=== PATIENT | male | born 1940 | race Caucasian/White ===

== ENCOUNTER 2021-11-21 00:46 | Inpatient (IN) | payer MEDICAID, OTHER ==
[~2021-11-21] VITALS: Ht 154.9 cm; Wt 59.9 kg
--- NOTE | 2021-11-21 01:15 | NUR ---
OLINDA FROM [facility] FOR SOB AND LOW O2 SATURATION. UPON ARRIVAL PT TACHYPENIC AND O2 SAT IN 90S PLACED ON NRB AT 15LPM INCREASED SATURATION TO 100%. WAS AT BEDSIDE FOR EVAL.
[2021-11-21] MEDS ORDERED: ALBUTEROL FS 2.5 MG/3 ML VIAL.NEB ONE (01:17)
[2021-11-21] MEDS ORDERED: IPRATROPIUM NEB FS 0.5 MG/2.5 ML AMPUL.NEB ONE (01:17)
[2021-11-21] MEDS ORDERED: LEVOFLOXACIN 500 MG /D5W 100ML 0 ML IV ONE (01:23)
[2021-11-21] MEDS ORDERED: LEVOFLOXACIN 750 MG /D5W 150ML 150 ML IV ONE ×2 (01:25→01:30)
[2021-11-21 01:26] LABS: ABG PCO2 47.8 mmHg (35.0-45.0); ABG PO2 202.9 mmHg (75.0-100.0); COHb 0.5 % (0.5-1.5); MetHb 0.3 % (0.0-1.5); O2Hb 98.5 % (94.0-97.0); SITE, ABG Right Radial; VENT MODE, BG 15LPM NRB
[2021-11-21] MEDS ORDERED: ALBUTEROL FS 2.5 MG/3 ML VIAL.NEB NEB ONE (01:30)
[2021-11-21] MEDS ORDERED: IPRATROPIUM NEB FS 0.5 MG/2.5 ML AMPUL.NEB NEB ONE (01:30)
--- NOTE | 2021-11-21 01:30 | NUR ---
20G IV LINE ESTABLISHED AT [facility]. BLOOD DRAWN AND SENT TO LAB
--- NOTE | 2021-11-21 01:59 | NUR ---
COVID TEST SWABBED AND SENT TO LAB
[2021-11-21 02:34] LABS: BASOPHILS # (AUTO) 0.1 K/uL (0.0-0.2); BASOPHILS % (AUTO) 0.6 % (0.0-2.0); EOSINOPHILS % (AUTO) 3.2 % (0.0-6.0); HEMATOCRIT 46 % (39-51); HEMOGLOBIN 15.6 g/dL (13.5-17.5); LYMPHOCYTES # (AUTO) 2.5 K/uL (0.8-4.8); LYMPHOCYTES % (AUTO) 22.6 % (20.0-44.0); MEAN CORPUSCULAR HGB CONC 34 g/dl (31.0-36.0); MEAN CORPUSCULAR VOLUME 88 fL (80-96); MONOCYTES # (AUTO) 1.2 K/uL (0.1-1.30); NEUTROPHILS # (AUTO) 6.8 K/uL (1.8-8.9); NEUTROPHILS % (AUTO) 62.6 % (43.0-81.0); PLATELET COUNT (AUTO) 237 K/uL (150-450); RED BLOOD CELL COUNT(AUTO) 5.17 MIL/uL (4.5-6.0); WHITE BLOOD COUNT (AUTO) 10.8 K/uL (4.3-11.0)
[2021-11-21 02:38] LABS: CALCIUM, SERUM 9.1 mg/dL (8.5-10.1); CARBON DIOXIDE 30 mmol/L (21-32); CHLORIDE 95 mmol/L (98-107); CREATININE 0.6 mg/dL (0.6-1.3); GLUCOSE 99 mg/dL (74-106); SODIUM SERUM 131 mmol/L (136-145); UREA NITROGEN, BLOOD 12 mg/dL (7-18)
[2021-11-21 02:54] LABS: ALANINE AMINOTRANSFERASE 35 U/L (12-78); ALBUMIN 3.6 g/dL (3.4-5.0); ALKALINE PHOSPHATASE 79 U/L (46-116); ASPARTATE AMINOTRANSFERASE 35 U/L (15-37); BILIRUBIN,DIRECT 0.1 mg/dL (0.0-0.2); BILIRUBIN,TOTAL 0.4 mg/dL (0.2-1.0); TOTAL PROTEIN, SERUM 7.9 g/dL (6.4-8.2)
[2021-11-21] MEDS ORDERED: IOHEXOL-350 100 ML VIAL IV ONE (02:59)
[2021-11-21] MEDS ORDERED: LEVOFLOXACIN 750 MG /D5W 150ML PIGGYBACK IV ONE (03:00)
--- NOTE | 2021-11-21 03:10 | NUR ---
PT BEING TRANSPORTED TO [facility]IA [facility]
--- NOTE | 2021-11-21 03:21 | NUR ---
PT RETURNED FROM CT SCAN
--- NOTE | 2021-11-21 03:33 | NUR ---
CALLED CHRIS FOR IMAGING READ
--- NOTE | 2021-11-21 05:06 | NUR ---
BED ASSIGNMENT: 327-1
[2021-11-21] MEDS ORDERED: ACETAMINOPHEN 325 MG TABLET PO PRN (06:00)
[2021-11-21] MEDS ORDERED: ONDANSETRON HCL/PF 4 MG/2 ML VIAL IVP PRN (06:00)
[2021-11-21] MEDS ORDERED: LEVALBUTEROL HCL NEB 1.25 MG/0.5 ML VIAL.NEB NEB PRN (06:00)
[2021-11-21] MEDS ORDERED: MORPHINE SULFATE INJ 2 MG/ML DISP.SYRIN IV PRN (06:00)
[2021-11-21] MEDS ORDERED: HYDROCODONE/APAP 5/325MG TABLET PO PRN (06:00)
[2021-11-21] MEDS ORDERED: MAG HYDROX/AL HYDROX/SIMETH 30 ML UDC PO PRN (06:00)
--- NOTE | 2021-11-21 06:17 | NUR ---
BED ASSIGNEMNT CHANGED TO 118-1
[2021-11-21] MEDS ORDERED: DOCUSATE SODIUM 100 MG CAPSULE PO ONE (06:22)
[2021-11-21] MEDS ORDERED: methylPREDNISolone SOD SUCC 125 MG/2ML VIAL ONE (06:22)
[2021-11-21] MEDS: DOCUSATE SODIUM 100 MG CAPSULE PO SCH ×3 (06:25→16:04)
[2021-11-21] MEDS: methylPREDNISolone SOD SUCC 125 MG/2ML VIAL IV SCH ×3 (06:25→21:26)
--- NOTE | 2021-11-21 06:34 | NUR ---
CALLED FOR REPORT. NO NURSE AVAILABLE.
--- NOTE | 2021-11-21 06:53 | NUR ---
REPORT GIVEN TO SULY
[2021-11-21] MEDS ORDERED: IPRATROPIUM NEB FS 0.5 MG/2.5 ML AMPUL.NEB NEB PRN (07:35)
[2021-11-21] MEDS ORDERED: PANTOPRAZOLE 40 MG TABLET.DR PO ONE (07:38)
[2021-11-21] MEDS: PANTOPRAZOLE 40 MG TABLET.DR PO SCH (07:40)
[2021-11-21] MEDS ORDERED: IPRA0.2S9 IH (07:48)
[2021-11-21] MEDS ORDERED: ATOR40TA PO (07:48)
[2021-11-21] MEDS ORDERED: DOXY100T2 PO (07:48)
[2021-11-21] MEDS ORDERED: LORA10TA68 PO (07:48)
[2021-11-21] MEDS ORDERED: BISA10SU11 RC (07:48)
[2021-11-21] MEDS ORDERED: MOME17SP (07:48)
[2021-11-21] MEDS ORDERED: ACET-2605 PO (07:48)
[2021-11-21] MEDS ORDERED: MAGN400O6 PO (07:48)
[2021-11-21] MEDS ORDERED: LATA2.5D15 EACHEYE (07:48)
[2021-11-21] MEDS ORDERED: IPRA4AER INH (07:48)
[2021-11-21] MEDS ORDERED: ASPI-1420 PO (07:48)
[2021-11-21] MEDS ORDERED: NA P133E RC (07:48)
[2021-11-21] MEDS ORDERED: PRED20TA PO (07:48)
[2021-11-21] MEDS ORDERED: POLY17PO4 PO (07:48)
[2021-11-21] MEDS ORDERED: OLOP2.5D12 EACHEYE (07:48)
[2021-11-21] MEDS ORDERED: FAMO20TA8 PO (07:48)
[2021-11-21] MEDS ORDERED: POLY15DR40 EACHEYE (07:48)
[2021-11-21] MEDS ORDERED: MELA3TAB41 PO (07:48)
[2021-11-21] MEDS ORDERED: ALBU6.7H9 IH (07:48)
[2021-11-21] MEDS ORDERED: CHOL100043 PO (07:48)
[2021-11-21] MEDS: LEVALBUTEROL HCL NEB 1.25 MG/0.5 ML VIAL.NEB NEB SCH ×3 (08:10→20:10)
[2021-11-21] MEDS: IPRATROPIUM NEB FS 0.5 MG/2.5 ML AMPUL.NEB NEB SCH ×3 (08:10→20:10)
--- NOTE | 2021-11-21 08:11 | NUR ---
THE PATIENT IS TAKEN TO ROOM 118-1 IN STABLE CONDITION AND PER POLICY
--- NOTE | 2021-11-21 08:15 | NUR ---
MECHANIC SOUND TECHNICIAN NOTES RECEIVED PATIENT VIA LINK FROM ER. ALERT AND ORIENTED TIMES 4. NO PAIN NOTED. SOB NOTED WHEN PATIENT TRYING TO MOVE . ON O2 INHALATION VIA NASAL CANNULA AT 4L/MIN. O2 SAT NOTED 100 %. EDUCATE THE PATIENT WITH TRANSLATION OF THE JENNIFER TO STAY IN BED AND USE URINAL FOR URINATION TO DECREASE THE RESPIRATORY DISTRESS. ALL NEEDS ATTENDED. ON TELE MONITOR READING 95 HR. IV SITE ON THE LEFT FOREARM G #20 INTACT. BED IN THE LOWEST POSITION AND LOCKED. CALL LIGHT AND TABLE WITHIN REACH. WILL CONTINUE TO MONITOR.
[2021-11-21] MEDS: ENOXAPARIN SODIUM 40 MG/0.4 ML DISP.SYRIN SQ SCH (09:03)
[2021-11-21] MEDS: ASPIRIN EC 81 MG TABLET.DR PO SCH (10:21)
[2021-11-21] MEDS ORDERED: BENZONATATE 100 MG CAPSULE PO PRN (10:30)
[2021-11-21] MEDS ORDERED: DEXTROSE 50%-WATER 50 ML DISP.SYRIN IV PRN (10:30)
[2021-11-21] MEDS ORDERED: GUAIFENESIN/CODEINE 10 ML UDC PO PRN (10:30)
[2021-11-21] MEDS ORDERED: BISACODYL SUPP (10 MG) 10 MG/SUPP.RECT SUPP.RECT RC PRN (11:00)
[2021-11-21] MEDS ORDERED: NA PHOS,M-B/NA PHOS,DI-BA 1 EA ENEMA RC PRN (11:00)
[2021-11-21] MEDS ORDERED: POLYETHYLENE GLYCOL 3350 17 GM POWD.PACK PO PRN (11:00)
[2021-11-21] MEDS ORDERED: MAGNESIUM HYDROXIDE 30 ML UDC PO PRN (11:00)
[2021-11-21 11:26] VITALS: BP 135/77
[2021-11-21] MEDS ORDERED: POLYVINYL ALCOHOL 15 ML BOTTLE OP PRN (11:30)
[2021-11-21] MEDS: BLOOD SUGAR DIAGNOSTIC 1 EACH STRIP VI SCH ×3 (12:01→21:41)
[2021-11-21] MEDS ORDERED: VANCOMYCIN 1.25 GM in IV D5W 250 ML IV ONE (14:00)
[2021-11-21] MEDS: INSULIN REGULAR, HUMAN 100 UNIT/ML 3 ML VIAL SQ PRN (14:46)
[2021-11-21] MEDS: ACETAMINOPHEN ES 500 MG TABLET PO SCH (16:04)
[2021-11-21] MEDS ORDERED: DOXYCYCLINE HYCLATE (100 MG) 100 MG TABLET PO SCH (17:00)
[2021-11-21] MEDS: *INSULIN REGULAR(HUMULIN R)HUM 100 UNIT/ML VIAL SQ PRN ×2 (17:35→21:42)
--- NOTE | 2021-11-21 18:44 | NUR ---
PARCEL POST TRUCK DRIVER CLOSING NOTES PATIENT ALERT AND ORIENTED TIMES 4. NO PAIN NOTED. SOB NOTED WHEN PATIENT TRYING TO MOVE . ON O2 INHALATION VIA NASAL CANNULA AT 5L/MIN. O2 SAT NOTED 96 %. REMIND PATIENT WITH TRANSLATION OF THE KARIN RUSS ENGLISH TUTOR TO STAY IN BED AND USE URINAL FOR URINATION TO DECREASE THE RESPIRATORY DISTRESS.ALL DUE MEDS GIVEN ORDERED. ALL NEEDS ATTENDED. ON TELE MONITOR READING SR . IV SITE ON THE LEFT FOREARM G #20 INTACT. BED IN THE LOWEST POSITION AND LOCKED. CALL LIGHT AND TABLE WITHIN REACH. WILL ENDORSE FOR MARY JO.
--- NOTE | 2021-11-21 19:10 | NUR ---
PATIENT SITTING IN BED, NO SOB/ACUTE DISTRESS NOTED, SON AND GIRLFRIEND AT BEDSIDE, PT DENIES ANY SOB/PAIN OR DISCOMFORT, BUT NOTED THAT PT DESATURATES QUICK WHENEVER HE MOVES OR USE URINAL, WILL KEEP PATIENT SAFE, WILL CONTINUE TO MONITOR CLOSELY.
[2021-11-21 20:00] VITALS: BP 104/66
[2021-11-21] MEDS: LATANOPROST EYE DROP 0.005% 2.5 ML BOTTLE EACHEYE SCH (21:27)
[2021-11-21] MEDS: ATORVASTATIN 40 MG TABLET PO SCH (21:30)
[2021-11-22] MEDS: IPRATROPIUM NEB FS 0.5 MG/2.5 ML AMPUL.NEB NEB SCH ×4 (01:45→20:15)
[2021-11-22] MEDS: LEVALBUTEROL HCL NEB 1.25 MG/0.5 ML VIAL.NEB NEB SCH ×4 (01:45→20:16)
[2021-11-22] MEDS ORDERED: VANCOMYCIN 1 GM in IV D5W 250 ML IV SCH (02:00)
[2021-11-22] MEDS ORDERED: VANCOMYCIN 1 GM VIAL ONE (03:07)
[2021-11-22] MEDS: methylPREDNISolone SOD SUCC 125 MG/2ML VIAL IV SCH ×3 (04:14→20:32)
--- NOTE | 2021-11-22 06:44 | NUR ---
RN CLOSING NOTE, PATIENT IN BED, ON 4LPM VIA NC, NO SO AND DISTRESS WITH EXERTION, DESATURATES WITH EXERTION, O2 DROPS QUICK, NSR IN TELE MONITOR NSR IN THE 80S-90S. OTHERWISE STABLE THROUGHOUT ON NC, ALL NEEDS MET AND MEDS ADMINISTERED ORDERED, ALL SAFETY MEASURES FOLLOWED, BED LOCKED AND IN LOWEST POSITION, KEPT PT SAFE AT ALL TIMES, CALL LIGHT WITHIN REACH, WILL ENDORSE CONTINUITY OF CARE TO ONCOMING NURSE.
[2021-11-22] MEDS: BLOOD SUGAR DIAGNOSTIC 1 EACH STRIP VI SCH ×4 (07:30→21:29)
--- NOTE | 2021-11-22 07:56 | NUR ---
RN OPENING NOTES PATIENT AWAKE IN BED RESTING, A/O X4. NO S/S OF PAIN NOTED AT THIS TIME. PATIENT ON 4L OXYGEN, NO DISTRESS OR SHORTNESS OF BREATH AT THE MOMENT. IV ACCESS LFA #20G INTACT, PATENT AND FLUSHING WELL. PATIENT HAS AN EXTERNAL LEAD HOUSEKEEPER CURRENT READING OF S.R AND HR OF 80. FALL AND SAFETY MEASURES IN PLACE, BED ALARM ON, BED IN LOW AND LOCK POSITION, CALL LIGHT AND TABLE WITHIN EASY REACH, SIDE RAILS UP X2. WILL CONTINUE TO MONITOR.
[2021-11-22] MEDS ORDERED: MOMETASONE FUROATE NASAL SUSP 17 GM BOTTLE PRN (09:00)
[2021-11-22] MEDS: LEVOFLOXACIN 750 MG /D5W 150ML 150 ML IV SCH (09:39)
[2021-11-22] MEDS: LORATADINE 10 MG TABLET PO SCH (09:39)
[2021-11-22] MEDS: ACETAMINOPHEN ES 500 MG TABLET PO SCH ×2 (09:40→16:25)
[2021-11-22] MEDS: CHOLECALCIFEROL 1,000 UNIT TABLET (VIT D3) PO SCH (09:40)
[2021-11-22] MEDS: ASPIRIN EC 81 MG TABLET.DR PO SCH (09:40)
[2021-11-22] MEDS: DOCUSATE SODIUM 100 MG CAPSULE PO SCH ×2 (09:40→16:25)
[2021-11-22] MEDS: ENOXAPARIN SODIUM 40 MG/0.4 ML DISP.SYRIN SQ SCH (09:42)
[2021-11-22] MEDS: PANTOPRAZOLE 40 MG TABLET.DR PO SCH (09:43)
[2021-11-22] MEDS: OLOPATADINE HCL 0.1% OPHTH BOTTLE EACHEYE SCH (10:16)
[2021-11-22] MEDS: *INSULIN REGULAR(HUMULIN R)HUM 100 UNIT/ML VIAL SQ PRN ×3 (12:33→21:33)
[2021-11-22] MEDS: METOPROLOL TARTRATE 25 MG TABLET PO SCH ×2 (12:40→21:17)
--- NOTE | 2021-11-22 18:56 | NUR ---
RN CLOSING NOTES PATIENT AWAKE IN BED RESTING, A/O X4. NO S/S OF PAIN NOTED AT THIS TIME. PATIENT ON 4L OXYGEN, NO DISTRESS OR SHORTNESS OF BREATH AT THE MOMENT. IV ACCESS LFA #20G INTACT, PATENT AND FLUSHING WELL. PATIENT HAS AN EXTERNAL CLOD PULLER CURRENT READING OF S.T. AND HR OF 106. FALL AND SAFETY MEASURES IN PLACE, BED ALARM ON, BED IN LOW AND LOCK POSITION, CALL LIGHT AND TABLE WITHIN EASY REACH, SIDE RAILS UP X2. WILL ENDORSE TO SKIP TRACER.
--- NOTE | 2021-11-22 19:29 | NUR ---
RN OPENING NOTES RECEIVED PATIENT IN BED AWAKE, A/O X4 AND VERBALLY RESPONSIVE. [place]STA RICAN SPEAKING. ON 4L/MIN VIA N/C, O2 SAT 94% AND PT TOLERATED WELL. NOTED ON AND OFF NON-PRODUCTIVE COUGH. IV ACCESS LFA #20G INTACT AND PATENT, NO S/S OF INFILTRATIONS. NO C/O PAIN OR DISCOMFORT. NO ACUTE DISTRESS. ALL SAFETY MEASURES IN PLACE, BED ALARM ON, BED IN LOWEST POSITION AND LOCKED. PLACE CALL LIGHT WITHIN REACH, SIDE RAILS UP X2. WILL CONTINUE TO MONITOR.
[2021-11-22 20:00] VITALS: BP 117/71
[2021-11-22] MEDS: ATORVASTATIN 40 MG TABLET PO SCH (21:16)
[2021-11-22] MEDS: DOXYCYCLINE HYCLATE (100 MG) 100 MG TABLET PO SCH (21:16)
[2021-11-22] MEDS: LATANOPROST EYE DROP 0.005% 2.5 ML BOTTLE EACHEYE SCH (21:18)
--- NOTE | 2021-11-22 21:40 | NUR ---
RN NOTES: PT'S BLOOD SUGAR 151, 2 UNITS OF REGULAR INSULIN GIVEN PER SLIDING SCALE. NO S/S OF HYPER/HYPOGLYCEMIA. WILL CONTINUE TO MONITOR
[2021-11-23] VITALS: BP 115/70
[2021-11-23] MEDS: LEVALBUTEROL HCL NEB 1.25 MG/0.5 ML VIAL.NEB NEB SCH ×4 (02:04→19:54)
[2021-11-23] MEDS: IPRATROPIUM NEB FS 0.5 MG/2.5 ML AMPUL.NEB NEB SCH ×4 (02:05→19:54)
[2021-11-23 04:00] VITALS: BP 125/71
[2021-11-23] MEDS: methylPREDNISolone SOD SUCC 125 MG/2ML VIAL IV SCH (04:31)
[2021-11-23 06:25] LABS: HEMATOCRIT 42 % (39-51); LYMPHOCYTES % (AUTO) 5.8 % (20.0-44.0); MEAN CORPUSCULAR HGB CONC 34 g/dl (31.0-36.0); MEAN CORPUSCULAR VOLUME 88 fL (80-96); MONOCYTES # (AUTO) 0.9 K/uL (0.1-1.30); MONOCYTES % (AUTO) 5.1 % (2.0-12.0); NEUTROPHILS # (AUTO) 16.2 K/uL (1.8-8.9); NEUTROPHILS % (AUTO) 89.1 % (43.0-81.0); PLATELET COUNT (AUTO) 265 K/uL (150-450); RED BLOOD CELL COUNT(AUTO) 4.72 MIL/uL (4.5-6.0); WHITE BLOOD COUNT (AUTO) 18.1 K/uL (4.3-11.0)
--- NOTE | 2021-11-23 06:34 | NUR ---
RN CLOSING NOTES PATIENT IN BED, SLEEPING BUT EASILY AROUSABLE, A/O X4 AND VERBALLY RESPONSIVE. EQUATORIAL GUINEAN SPEAKING. ON 4L/MIN VIA N/C, O2 SAT 94% AND PT TOLERATED WELL. NOTED ON AND OFF NON-PRODUCTIVE COUGH. BREATHING TX GIVEN BY RT. CARDIAC MONITORING SHOWS SR TO ST. IV ACCESS ON LFA #20G INTACT AND PATENT, NO S/S OF INFILTRATIONS. NO C/O PAIN OR DISCOMFORT. NO ACUTE DISTRESS. ALL MEDS GIVEN ORDERED AND PT TOLERATED WELL. ALL SAFETY MEASURES IN PLACE, BED ALARM ON, BED IN LOWEST POSITION AND LOCKED. PLACE CALL LIGHT WITHIN REACH, SIDE RAILS UP X2. WILL ENDORSE TO MORNING SHIFT NURSE. Addendum: 11/23/21 at 0639 by LILIANE BONNER RN 6L/MIN VIA N/C
[2021-11-23 06:40] LABS: CREATININE 0.7 mg/dL (0.6-1.3)
[2021-11-23 08:00] VITALS: BP 128/86
[2021-11-23] MEDS: LORATADINE 10 MG TABLET PO SCH (08:00)
[2021-11-23] MEDS: BLOOD SUGAR DIAGNOSTIC 1 EACH STRIP VI SCH ×4 (08:00→22:27)
[2021-11-23] MEDS: CHOLECALCIFEROL 1,000 UNIT TABLET (VIT D3) PO SCH (08:01)
[2021-11-23] MEDS: DOCUSATE SODIUM 100 MG CAPSULE PO SCH ×2 (08:01→16:03)
[2021-11-23] MEDS: ASPIRIN EC 81 MG TABLET.DR PO SCH (08:01)
[2021-11-23] MEDS: ACETAMINOPHEN ES 500 MG TABLET PO SCH ×2 (08:01→16:03)
[2021-11-23] MEDS: PANTOPRAZOLE 40 MG TABLET.DR PO SCH (08:01)
[2021-11-23] MEDS: DOXYCYCLINE HYCLATE (100 MG) 100 MG TABLET PO SCH ×2 (08:01→22:06)
[2021-11-23] MEDS: OLOPATADINE HCL 0.1% OPHTH BOTTLE EACHEYE SCH (08:01)
[2021-11-23] MEDS: METOPROLOL TARTRATE 25 MG TABLET PO SCH ×2 (08:02→22:06)
[2021-11-23] MEDS: LEVOFLOXACIN 750 MG /D5W 150ML 150 ML IV SCH (08:02)
[2021-11-23] MEDS: ENOXAPARIN SODIUM 40 MG/0.4 ML DISP.SYRIN SQ SCH (08:04)
[2021-11-23 09:19] LABS: THYROID STIMULATING HORMONE 0.238 uIU/mL (0.358-3.74)
[2021-11-23 12:00] VITALS: BP 101/65
[2021-11-23 12:15] LABS: ABG BASE EXCESS 3.5 mmol/L; ABG OXYGEN SATURATION 90.1 % (92.0-98.5); ABG PCO2 44.6 mmHg (35.0-45.0); ABG PH 7.424 (7.350-7.450); ABG PO2 56.1 mmHg (75.0-100.0); AaDO2 90.9 mmHg; MetHb 0.2 % (0.0-1.5); SITE, ABG Right Brachial; VENT MODE, BG 2LPM NC
--- NOTE | 2021-11-23 12:15 | NUR ---
RT POST ABG RESULTS SHOWN TO SHELDON LEAL. PLACED PT ON 3LPM O2 VIA NC. NO SOB NOTED AT THIS TIME. WILL CONTINUE TO MONITOR CLOSELY.
[2021-11-23] MEDS: methylPREDNISolone SOD SUCC 40 MG/ML VIAL IV SCH ×2 (12:29→22:06)
[2021-11-23 16:00] VITALS: BP 112/65
[2021-11-23] MEDS: INSULIN REGULAR, HUMAN 100 UNIT/ML 3 ML VIAL SQ PRN (19:02)
--- NOTE | 2021-11-23 19:30 | NUR ---
RN NOTES RECEIVED PT FOR CONTINUITY OF CARE. PATIENT A/OX4, THAI SPEAKING IN NO S/SX OF ACUTE DISTRESS AT THIS TIME; CURRENTLY ON 4L OF 02 VIA NC; WITH 02 SAT >95% AT THIS TIME. WILL ENSURE SAFETY MEASURES WITHIN THE SHIFT. PATIENT BED ALARM IS ON. HEAD OF BED ELEVATED. BED IS LOCKED, IN LOWEST POSITION AND SIDE RAILS UP. CALL LIGHT WITHIN REACH OF THE PATIENT. APPLICABLE ISOLATION PRECAUTIONS IN PLACE. WILL CONTINUE TO MONITOR AND REASSESS FOR ANY CHANGES AND WILL CARRY OUT ANY ONGOING AND ACTIVE MD ORDER.
--- NOTE | 2021-11-23 19:48 | NUR ---
RN NOTES PATIENT RESTING AWAKE IN BED, ALERT AND ORIENTED X4 AND VERBALLY RESPONSIVE. KYRGYZ SPEAKING. ON 02 @ 4L/MIN VIA N/C. O2 SAT 94% CARDIAC MONITORING SHOWS SR IV ACCESS ON LFA #20G INTACT AND PATENT, NO S/S OF INFILTRATIONS. NO C/O PAIN OR DISCOMFORT. NO ACUTE DISTRESS. ALL DUE MEDS GIVEN. ALL SAFETY MEASURES IN PLACE, BED ALARM ON, BED IN LOWEST POSITION AND LOCKED. PLACE CALL LIGHT WITHIN REACH, SIDE RAILS UP X2.
[2021-11-23 20:00] VITALS: BP 120/65
[2021-11-23] MEDS: ATORVASTATIN 40 MG TABLET PO SCH (22:05)
[2021-11-23] MEDS: LATANOPROST EYE DROP 0.005% 2.5 ML BOTTLE EACHEYE SCH (22:05)
[2021-11-23] MEDS: *INSULIN REGULAR(HUMULIN R)HUM 100 UNIT/ML VIAL SQ PRN (22:16)
--- NOTE | 2021-11-23 22:51 | NUR ---
RN NOTES REPORT GIVEN TO MEL MONTES FOR MARY JO.
[2021-11-24] VITALS: BP_SYST 134; BP_SYST 3; BP_DIAS 65; BP_DIAS 79
[2021-11-24] MEDS: IPRATROPIUM NEB FS 0.5 MG/2.5 ML AMPUL.NEB NEB SCH ×4 (01:30→20:28)
[2021-11-24] MEDS: LEVALBUTEROL HCL NEB 1.25 MG/0.5 ML VIAL.NEB NEB SCH ×4 (01:30→20:27)
[2021-11-24 04:00] VITALS: BP 107/64
[2021-11-24] MEDS: methylPREDNISolone SOD SUCC 40 MG/ML VIAL IV SCH ×3 (04:33→16:18)
--- NOTE | 2021-11-24 05:29 | NUR ---
RN notes Resting comfortably in bed with no distress noted. breathing even and unlabored. On 4lpm O2 via nasal cannula tolerating well. Alert and oriented. Verbally able to communicate needs. No complaint of pain or discomfort. Vital signs wnl. No significant change of condition. Kept clean and dry. Will endorse to next shift for continuity of care.
[2021-11-24 08:00] VITALS: BP 136/83
[2021-11-24] MEDS: LEVOFLOXACIN 750 MG /D5W 150ML 150 ML IV SCH (08:24)
[2021-11-24] MEDS: OLOPATADINE HCL 0.1% OPHTH BOTTLE EACHEYE SCH (08:24)
[2021-11-24] MEDS: LORATADINE 10 MG TABLET PO SCH (08:25)
[2021-11-24] MEDS: CHOLECALCIFEROL 1,000 UNIT TABLET (VIT D3) PO SCH (08:25)
[2021-11-24] MEDS: BLOOD SUGAR DIAGNOSTIC 1 EACH STRIP VI SCH ×4 (08:25→22:48)
[2021-11-24] MEDS: PANTOPRAZOLE 40 MG TABLET.DR PO SCH (08:25)
[2021-11-24] MEDS: ACETAMINOPHEN ES 500 MG TABLET PO SCH ×2 (08:25→16:18)
[2021-11-24] MEDS: ASPIRIN EC 81 MG TABLET.DR PO SCH (08:25)
[2021-11-24] MEDS: DOXYCYCLINE HYCLATE (100 MG) 100 MG TABLET PO SCH ×2 (08:26→20:55)
[2021-11-24] MEDS: DOCUSATE SODIUM 100 MG CAPSULE PO SCH ×2 (08:26→16:18)
[2021-11-24] MEDS: METOPROLOL TARTRATE 25 MG TABLET PO SCH ×2 (08:26→20:56)
[2021-11-24] MEDS: ENOXAPARIN SODIUM 40 MG/0.4 ML DISP.SYRIN SQ SCH (08:28)
[2021-11-24 12:00] VITALS: BP 136/83
[2021-11-24 16:00] VITALS: BP 120/73
--- NOTE | 2021-11-24 18:33 | NUR ---
RN NOTES PATIENT RESTING IN BED, ALERT AND ORIENTED X4 AND VERBALLY RESPONSIVE. ON 02 @ 4L/MIN VIA N/C. O2 SAT 98%. PT ON MS STATUS. IV ACCESS ON LFA #20G INTACT AND PATENT. NO C/O PAIN OR DISCOMFORT. NO ACUTE DISTRESS. ALL DUE MEDS GIVEN. ALL SAFETY MEASURES IN PLACE. DUE MEDICATIONS GIVEN.
--- NOTE | 2021-11-24 19:10 | NUR ---
RN NOTES RECEIVED PATIENT IN BED AWAKE, A/O X4 AND VERBALLY RESPONSIVE. VIETNAMESE SPEAKING. ON 4L/MIN VIA N/C, O2 SAT 94% AND PT TOLERATED WELL. NOTED ON AND OFF NON-PRODUCTIVE COUGH. IV ACCESS LFA #20G INTACT AND PATENT, NO S/S OF INFILTRATIONS. NO C/O PAIN OR DISCOMFORT. NO ACUTE DISTRESS. ALL SAFETY MEASURES IN PLACE, BED ALARM ON, BED IN LOWEST POSITION AND LOCKED. PLACE CALL LIGHT WITHIN REACH, SIDE RAILS UP X2. WILL CONTINUE TO MONITOR.
[2021-11-24] MEDS: ATORVASTATIN 40 MG TABLET PO SCH (20:56)
--- NOTE | 2021-11-24 22:40 | NUR ---
RN NOTES BS 159 MG/DL DUE HUMULIN 3 2 UNITS GIVEN SQ PER SLIDING SCALE
[2021-11-24] MEDS: *INSULIN REGULAR(HUMULIN R)HUM 100 UNIT/ML VIAL SQ PRN (22:50)
[2021-11-24] MEDS: LATANOPROST EYE DROP 0.005% 2.5 ML BOTTLE EACHEYE SCH (22:52)
[2021-11-25] VITALS: BP 125/68
[2021-11-25] MEDS: IPRATROPIUM NEB FS 0.5 MG/2.5 ML AMPUL.NEB NEB SCH ×2 (01:55→08:10)
[2021-11-25] MEDS: LEVALBUTEROL HCL NEB 1.25 MG/0.5 ML VIAL.NEB NEB SCH ×2 (01:55→08:10)
--- NOTE | 2021-11-25 06:34 | NUR ---
RN NOTES PATIENT RESTING IN BED, ALERT AND ORIENTED X4 AND VERBALLY RESPONSIVE. ON 02 @ 3L/MIN VIA N/C. O2 SAT 99%. PT ON MS STATUS. IV ACCESS ON LFA #20G INTACT AND PATENT. NO C/O PAIN OR DISCOMFORT. NO ACUTE DISTRESS. ALL DUE MEDS GIVEN. ALL SAFETY MEASURES IN PLACE. DUE MEDICATIONS GIVEN.
[2021-11-25] MEDS: BLOOD SUGAR DIAGNOSTIC 1 EACH STRIP VI SCH ×2 (07:40→11:54)
--- NOTE | 2021-11-25 07:42 | NUR ---
RN CLOSING NOTE PATIENT IN BED, A/O X4 AND VERBALLY RESPONSIVE. KINYARWANDA SPEAKING. ON 3LPM VIA N/C, O2 SAT 97% AND PT TOLERATING WELL. IV ACCESS ON LFA #20G INTACT AND PATENT, NO S/S OF INFILTRATIONS. NO C/O PAIN OR DISCOMFORT. NO ACUTE DISTRESS. ALL SAFETY MEASURES IN PLACE, BED ALARM ON, BED IN LOWEST POSITION AND LOCKED. PLACE CALL LIGHT WITHIN REACH, SIDE RAILS UP X2. WILL CONTINUE TO MONITOR..
[2021-11-25 08:00] VITALS: BP 111/73
[2021-11-25 08:05] VITALS: BP 111/73
[2021-11-25] MEDS: DOXYCYCLINE HYCLATE (100 MG) 100 MG TABLET PO SCH (08:05)
[2021-11-25] MEDS: DOCUSATE SODIUM 100 MG CAPSULE PO SCH (08:05)
[2021-11-25] MEDS: CHOLECALCIFEROL 1,000 UNIT TABLET (VIT D3) PO SCH (08:05)
[2021-11-25] MEDS: METOPROLOL TARTRATE 25 MG TABLET PO SCH (08:05)
[2021-11-25] MEDS: ACETAMINOPHEN ES 500 MG TABLET PO SCH (08:05)
[2021-11-25] MEDS: methylPREDNISolone SOD SUCC 40 MG/ML VIAL IV SCH (08:05)
[2021-11-25] MEDS: PANTOPRAZOLE 40 MG TABLET.DR PO SCH (08:05)
[2021-11-25] MEDS: LORATADINE 10 MG TABLET PO SCH (08:05)
[2021-11-25] MEDS: ENOXAPARIN SODIUM 40 MG/0.4 ML DISP.SYRIN SQ SCH (08:09)
[2021-11-25] MEDS: OLOPATADINE HCL 0.1% OPHTH BOTTLE EACHEYE SCH (08:10)
[2021-11-25] MEDS: ASPIRIN EC 81 MG TABLET.DR PO SCH (08:16)
[2021-11-25] MEDS: LEVOFLOXACIN 750 MG /D5W 150ML 150 ML IV SCH (08:20)
--- NOTE | 2021-11-25 13:00 | NUR ---
FLAME CUTTING MACHINE OPERATOR HELPER NOTE PATIENT REMAINED STABLE UPON DISCHARGE. PATIENT IN BED, A/O X4 AND VERBALLY RESPONSIVE. AZERI SPEAKING. ON 3LPM VIA N/C, O2 SAT 97% AND PT TOLERATING WELL. IV ACCESS ON LFA #20G REMOVED FULLY INTACT NO S/SX OF BLEEDING. NO C/O PAIN OR DISCOMFORT. NO ACUTE DISTRESS. PATIENT V/S STABLE UPON DISCHARGE. DISCHARGED AND TRANSPORTED BY 2 [place] PHOTOGRAPHER [facility].
== END 2021-11-25 19:15 | DRG 133 ==
LOC: ER 00:48 → TELE 05:09 → TELE1 06:19 → MEDSG1 11-24 08:37
PROVIDERS: ADMIT Internal Medicine; ATTEND Internal Medicine
DX: J96.21 Acute and chronic respiratory failure with hypoxia (principal); J18.9 Pneumonia, unspecified organism; J84.10 Pulmonary fibrosis, unspecified; Z99.81 Dependence on supplemental oxygen; E78.5 Hyperlipidemia, unspecified; Z86.73 Personal history of transient ischemic attack (TIA), and cerebral infarction without residual deficits; Z86.16 Personal history of COVID-19; I25.10 Atherosclerotic heart disease of native coronary artery without angina pectoris; Z20.822 Contact with and (suspected) exposure to COVID-19; I10 Essential (primary) hypertension; Z66 Do not resuscitate; Z79.2 Long term (current) use of antibiotics; H40.9 Unspecified glaucoma; R73.03 Prediabetes; M19.90 Unspecified osteoarthritis, unspecified site; Z96.653 Presence of artificial knee joint, bilateral; K59.00 Constipation, unspecified; L85.3 Xerosis cutis; J47.9 Bronchiectasis, uncomplicated; Z74.09 Other reduced mobility; R53.81 Other malaise
CPT/HCPCS: 36415; 36600; 71045-TC; 80048-TC; 80076-TC; 80202-TC; 82803-TC; 82962-TC; 83605-TC; 83880; 84443-TC; 84484-TC; 85025-TC; 85378-TC; 87040-TC; 87081-TC; 93307-TC; 94799-TC; C9803; G0378; J1650; J1815; J1956; J2920; J2930; J3370; J7040; J7050; J7060; Q9967